=== PATIENT | female | born 1955 | race Caucasian/White ===

== ENCOUNTER → 2025-03-21 | Outpatient (REF) | payer MEDICARE, OTHER, BC | LOC: M LAB REF 17:05 | PROVIDERS: ATTEND Nurse Practitioner Family | DX: R30.0 Dysuria (principal) ==

== ENCOUNTER 2025-05-30 15:03 | Emergency (ER) | payer MEDICARE, BC, OTHER ==
[~2025-05-30] VITALS: Ht 160 cm; Wt 84.0 kg
[2025-05-30] MEDS ORDERED: MORPHINE 2 MG/ML 1 ML VIAL IV ONE (16:40)
[2025-05-30] MEDS ORDERED: ACETAMINOPHEN 500 MG TAB PO ONE (16:40)
[2025-05-30] MEDS: PERCOCET 5MG/325MG TAB PO ONE (17:24)
[2025-05-30 18:01] VITALS: O2SAT 99
[2025-05-30 18:30] VITALS: BP 118/67; TEMP 97.5; O2SAT 97
== END 2025-05-30 18:52 | disposition home or self-care (01) ==
LOC: M ED 15:03
DX: S01.01XA Laceration without foreign body of scalp, initial encounter (principal); S50.311A Abrasion of right elbow, initial encounter; W18.30XA Fall on same level, unspecified, initial encounter; Y92.009 Unspecified place in unspecified non-institutional (private) residence as the place of occurrence of the external cause; Y93.9 Activity, unspecified; Y99.9 Unspecified external cause status; E11.9 Type 2 diabetes mellitus without complications; I48.91 Unspecified atrial fibrillation; I10 Essential (primary) hypertension; M06.9 Rheumatoid arthritis, unspecified; Z85.41 Personal history of malignant neoplasm of cervix uteri; Z95.0 Presence of cardiac pacemaker; Z91.041 Radiographic dye allergy status